=== PATIENT | male | born 1950 | race Caucasian/White ===

== ENCOUNTER 2017-01-15 13:28 | Observation (INO) | payer MEDICARE, OTHER ==
[2017-01-15 14:49] LABS: Bilirubin Negative (Negative); Blood, Urine Negative (Negative); Glucose, Urine (Dipstick) 500 mg/dL (Negative); Ketone, Urine Negative (Negative); Nitrite Negative (Negative); Protein, Urine (Dipstick) Negative (Neg-Trace); Urobilinogen 0.2 mg/dL (0.2-1.0)
[2017-01-15 14:51] LABS: Acetaminophen Less than 6.0 mcg/mL (10.0-30.0); Salicylate Less than 8.0 mg/dL (15.0-30.0)
[2017-01-15 14:58] LABS: Amphetamine Not Detected (NotDetected); Methadone Not Detected (NotDetected); Methamphetamine Not Detected (NotDetected)
[2017-01-15] MEDS ORDERED: Acetaminophen 325 MG TAB PO PRN (16:04)
[2017-01-15] MEDS ORDERED: Dextrose 5% in Water 1,000 ML IV PRN (16:04)
[2017-01-15] MEDS ORDERED: HumaLOG 300 UNITS/3 ML VIAL SC PRN (16:04)
[2017-01-15] MEDS ORDERED: Ondansetron HCl/PF 4 MG/2 ML Vial IVP PRN (16:04)
[2017-01-15] MEDS ORDERED: Dextrose 50% Abboject 50 ML SYRINGE SLOW IVP PRN (16:04)
[2017-01-15 16:29] VITALS: BMI 32.3
[2017-01-15] MEDS ORDERED: FLU VACC TS2017-18 (>65YR) 0.5 ML SYRINGE IM ONE (16:45)
--- NOTE | 2017-01-15 17:06 | HP ---
CHIEF COMPLAINT: Anaphylactic reaction to Advil. HISTORY OF PRESENT ILLNESS: This is a 66-year-old pleasant gentleman, who was apparently in his [facility] state of health, went to play golf, but he had forgotten to take his aspirin which he usually zackery es for pain control, so his friend offered him Advil. He took the Advil and had shortness of breath , swelling of his lips and right chest tightness. EMS was called and he was sent to [facility] whe re he got epinephrine, Benadryl, and IV Solu-Medrol, and within half an hour he was back to normal. His blood pressure was noted to be a little low and hence he was transferred to our hospital for ob servation. He is going to be admitted for the same. Denies any fever, chills, chest pain, nausea, or vomiting right now. PAST MEDICAL HISTORY: Significant for hyperlipidemia, hypertension, diabetes, some peripheral neuro ingrid. PAST SURGICAL HISTORY: Metal plate in his neck. MEDICATIONS: Include gabapentin, metformin, pravastatin, aspirin, and metformin. ALLERGIES: ALEVE right now. SOCIAL HISTORY: Smokes 1 pack per day and drinks 5 to 6 drinks a day and denies recreational drug u se. FAMILY HISTORY: Negative for diabetes and hypertension. REVIEW OF SYSTEMS: Significant for no fever, no chills, no headache, no appetite, no hearing loss, no latencies. No cough, no chest pain, diarrhea, dysuria, or polyuria. No memory or mood changes. No neck pain. Symptoms resolved as per HPI. PHYSICAL EXAMINATION: VITAL SIGNS: Blood pressure right now is 98/68, afebrile, pulse is 70. The patient is breathing co mfortably on room air. GENERAL: The patient is lying in bed, in no apparent distress. HEENT: Atraumatic and normocephalic. Pupils equally round, react to light. Extraocular movements intact. Mucous membranes moist. NECK: No JVD. CHEST: Breath sounds. There are no rales or rhonchi. HEART: S1, S2, no murmurs or gallops. ABDOMEN: Soft. EXTREMITIES: No cyanosis, clubbing, or edema. Distal pulses present. NEUROLOGIC: Alert, awake, oriented. No cranial deficits. No sensorimotor deficits. LABORATORY DATA: WBC count is 13.2, potassium was 3.8, hemoglobin is 16, creatinine is 0.8. LDL is 56, troponin negative. CK is 151. LFTs are normal. ASSESSMENT AND PLAN: 1. Anaphylactic reaction secondary to Advil, resolved with epinephrine, Solu-Medrol and Benadryl us e. We will give the patient p.r.n. Benadryl and monitor him for any further signs of allergies. We will give the patient IV fluids. If the patient is doing well in 24 hours, we will discharge him h ome. 2. Diabetes, put the patient on insulin sliding scale. Continue metformin. 3. Tobacco use and alcohol use, the patient has been counseled. 4. Hyperlipidemia, stable. 5. We will do sequential compression devices for deep venous thrombosis prophylaxis. We will monit or the patient and do the needful.
[2017-01-15] MEDS: Sodium Chloride 0.9% 1,000 ML IV SCH (17:11)
[2017-01-15] MEDS: Famotidine 20 MG TAB PO SCH (19:44)
[2017-01-15] MEDS ORDERED: Pravastatin Sodium 20 MG TAB PO SCH (21:00)
[2017-01-15] MEDS ORDERED: Gabapentin 100 MG CAP PO SCH (21:00)
[2017-01-16 04:14] VITALS: TEMP 98
[2017-01-16 04:38] LABS: Anion Gap 7 mmol/L (10-20); BUN (Urea Nitrogen) 13 mg/dL (8.4-25.7); Calc. Creatinine Clearance 146 mL/min (70-130); Calcium 8.4 mg/dL (7.8-10.44); Carbon Dioxide 23 mmol/L (23-31); Chloride 111 mmol/L (98-107); Estimated GFR-MDRD Greater than 90
[2017-01-16] MEDS: Sodium Chloride 0.9% 1,000 ML IV SCH (06:06)
[2017-01-16 08:01] VITALS: BP 120/71
[2017-01-16] MEDS: Famotidine 20 MG TAB PO SCH (08:52)
--- NOTE | 2017-01-16 10:19 | DIS ---
DATE OF ADMISSION: 01/15/2017 DATE OF DISCHARGE: 01/16/2017 DISCHARGE DIAGNOSES: 1. Anaphylactic reaction secondary to Advil, resolved. 2. Diabetes, stable. 3. Tobacco use, stable. 4. Alcohol use, stable. 5. Hyperlipidemia, stable. 6. Hypertension, stable. DISCHARGE MEDICATIONS: The same as admit medications. BRIEF HOSPITAL COURSE: A 66-year-old pleasant gentleman took some Advil and had an anaphylactic ching ction. Please refer to my H\T\P for further details. The patient's reaction resolved after getting epinephrine, Benadryl, IV Solu-Medrol. He was put in the hospital for monitoring. He did well thi s hospital stay, his blood pressure is good. His labs look good. He is right now medically stable to be discharged today. PHYSICAL EXAMINATION: VITAL SIGNS: At the time of discharge, his blood pressure was 120/70, afebrile, pulse was 80, and r espirations 18. GENERAL: The patient is lying in bed, in no apparent distress. HEENT: Atraumatic and normocephalic. Pupils equal, round, react to light. Extraocular movements i ntact. Mucous membranes moist. NECK: Supple. No JVD. CHEST: Breath sounds. There are no rales or rhonchi. HEART: S1, S2, no murmurs or gallops. ABDOMEN: Soft. EXTREMITIES: No cyanosis, clubbing or edema. Distal pulses present. NEUROLOGIC: Alert, awake, oriented. No cranial deficits. No sensorimotor deficits. LABORATORY DATA: Showed a creatinine of 0.71. Other electrolytes are within normal limits. Right now patient is doing much better. He is medically stable to be discharged with outpatient fol low up with PCP. He is asked to come back to the emergency room in case symptoms recur. Total time for this discharge took 35 minutes.
== END 2017-01-16 11:28 | disposition home or self-care (01) ==
LOC: ERS 13:28 → 2SW 15:59
PROVIDERS: ADMIT Internal Medicine; ATTEND Internal Medicine
DX: T88.6XXA Anaphylactic reaction due to adverse effect of correct drug or medicament properly administered, initial encounter (principal); F17.210 Nicotine dependence, cigarettes, uncomplicated; Z72.89 Other problems related to lifestyle; E78.5 Hyperlipidemia, unspecified; I10 Essential (primary) hypertension; E11.42 Type 2 diabetes mellitus with diabetic polyneuropathy; Z79.82 Long term (current) use of aspirin; Z79.84 Long term (current) use of oral hypoglycemic drugs; Z79.899 Other long term (current) drug therapy; Z88.6 Allergy status to analgesic agent; Z96.7 Presence of other bone and tendon implants
CPT/HCPCS: 80048; 80306; 80307; 81003; 82962 ×2; 84443; 90732; 96360; 96361 ×2; 99285; G0008; G0009; G0378; Q2036; 36415; 36416; 90471; 90682

== ENCOUNTER 2017-11-02 08:33 | Outpatient (CLI) | payer MEDICARE, OTHER | END 2017-11-02 08:34 | disposition home or self-care (01) | LOC: BICRAD 08:33 | PROVIDERS: ATTEND Internal Medicine | DX: R05 Cough (principal); I70.0 Atherosclerosis of aorta | CPT/HCPCS: 71046 ==

== ENCOUNTER 2019-11-12 08:55 | Outpatient (CLI) | payer MEDICARE, OTHER ==
--- NOTE | 2019-11-12 09:49 | ULT ---
Abdominal ultrasound: Grayscale images of abdomen obtained according to protocol. INDICATIONS: Abnormal laboratory values. Abdominal pain. FINDINGS: Gallbladder has a normal sonographic appearance. No evidence of gallstones. Common bile duct is mildly dilated measured at 8 mm. Liver unremarkable as visualized. The left lobe is obscured. Spleen is unremarkable. Pancreas is mostly obscured but appears unremarkable as visualized. Aorta and IVC mostly obscured. Aorta normal caliber as visualized. 7.5 cm cyst from the superior right kidney. 1.5 cm cyst from superior left kidney. Kidneys otherwise unremarkable. IMPRESSION: 1. Mildly dilated common bile duct 2. Bilateral renal cysts
== END 2019-11-12 08:56 | disposition home or self-care (01) ==
LOC: BICULT 08:55
PROVIDERS: ATTEND Internal Medicine
DX: R94.5 Abnormal results of liver function studies (principal); N28.1 Cyst of kidney, acquired
CPT/HCPCS: 93975

== ENCOUNTER 2020-01-16 11:04 | Outpatient (CLI) | payer MEDICARE, OTHER ==
[~2020-01-16 11:04] MED LIST: Iopamidol-370 76% 500 ML 1 ML ONE
[2020-01-16 11:21] LABS: Estimated GFR-MDRD - POC Greater than 90
--- NOTE | 2020-01-16 13:51 | CT ---
CT ABDOMEN AND PELVIS WITH IV CONTRAST: 01/16/20 INDICATIONS: Follow-up abdominal ultrasound which revealed dilated common bile duct. FINDINGS: The lung bases clear. There is a cyst in the upper left lobe of the liver measuring 2.5 cm. The liver otherwise unremarkabl e. Spleen and pancreas unremarkable. Common bile duct is upper normal caliber measured at approximately 7 to 8 mm in the region of the hea d of the pancreas. No pancreatic lesion is identified that would explain the mildly dilated common b ile duct. There is no evidence of intrahepatic duct or dilatation. The gallbladder is mildly contract ed and unremarkable by CT. No gallstones were seen on the recent ultrasound exam. Adrenal glands normal. The large cyst from the superior right kidney corresponds to the ultrasound findings. Kidneys otherwi se unremarkable with a small left renal cyst also noted. Small bowel loops appear normal. Appendix and colon unremarkable. Aorta normal caliber. No adenopathy or free fluid. Images through the pelvis unremarkable with mild prostatic calcification. Osseous str uctures unremarkable. IMPRESSION: 1. Small hepatic cyst as described. 2. Mildly prominent common bile duct. No pancreatic mass or other lesion identified. There is no intrahepatic ductal dilatation. 3. If there are abnormal liver function tests or other clinical reason to suspect bile duct obst ruction, endoscopy is recommended to rule out an ampullary lesion that is no apparent on CT. 4. Renal cystic lesions are again noted. POS: [facility]
== END 2020-01-16 11:05 | disposition home or self-care (01) ==
LOC: BICCT 11:04
PROVIDERS: ATTEND Internal Medicine
DX: R93.3 Abnormal findings on diagnostic imaging of other parts of digestive tract (principal); K76.89 Other specified diseases of liver; N28.1 Cyst of kidney, acquired; K83.8 Other specified diseases of biliary tract
CPT/HCPCS: 74177; 82565; Q9967

== ENCOUNTER 2021-04-27 14:10 | Outpatient (CLI) | payer MEDICARE, OTHER | END 2021-04-27 14:11 | disposition home or self-care (01) | LOC: BICRAD 14:10 | PROVIDERS: ATTEND Internal Medicine | DX: R06.00 Dyspnea, unspecified (principal) | CPT/HCPCS: 71046 ==

== ENCOUNTER 2022-08-11 13:32 | Outpatient (CLI) | payer MEDICARE, OTHER | END 2022-08-11 13:33 | disposition home or self-care (01) | LOC: BICULT 13:32 | PROVIDERS: ATTEND Internal Medicine | DX: N28.1 Cyst of kidney, acquired (principal) | CPT/HCPCS: 76770 ==